=== PATIENT | female | born 1985 | race Caucasian/White ===

== ENCOUNTER 2018-02-04 19:23 | Inpatient (IN) | payer OTHER ==
[2018-02-04 20:14] VITALS: BMI 25.0
[2018-02-04] MEDS ORDERED: Lactated Ringer's 1,000 ML IV SCH ×2 (20:45)
[2018-02-04 21:49] LABS: BASO % 0.5 % (0.0-2.0); EOS # 0.2 K/uL (0.0-0.7); EOS % 1.7 % (0.0-4.0); HEMOGLOBIN 13.2 g/dL (12.0-16.0); LYMPH # 1.9 K/uL (1.0-4.3); LYMPH % 17.6 % (20.0-40.0); MEAN CORPUSCULAR HGB CONC 32.9 g/dL (33.0-37.0); MEAN PLATELET VOLUME 8.7 fl (7.2-11.7); MONO # 0.7 K/uL (0.0-0.8); MONO % 6.4 % (0.0-10.0); NEUT % 73.8 % (50.0-75.0); RBC 5.09 Mil/uL (3.80-5.20); RED CELL DISTRIBUTION WIDTH 13.2 % (11.5-14.5); WHITE BLOOD COUNT 10.8 K/uL (4.8-10.8)
--- NOTE | 2018-02-05 09:35 | OBADHP ---
Datetime: 02/04/2018 23:29 Admit Comment, IP Provider: 32-year-old 011 at 38 weeks gestational age transferred to labor a nd delivery due to oligohydramnios. Patient for induction of labor. Patient denies any contractions, vaginal bleeding, leakage of fluids. Patient reports good movement. records reviewed. Line past medical history hypothyroidism Past surgical history denies Medications vitamins, Synthroid No known drug allergies Obstetrical history full-term 1 Social history denies tobacco, drugs, alcohol Assessment: 011 at 38 weeks gestational age with oligohydramnios for induction of labor. Both maternal w ell-being and well-being reassuring at this time. Plan: Discussed plan with patient and all patient questions answered. Cervidil placed vaginally. Pelvic Type - PN: Adequate Extremities - PN: Normal Abdomen - PN: Normal Back - PN: Normal Breast - PN: Normal Lungs - PN: Normal Heart - PN: Normal Thyroid - PN: Normal Neurologic - PN: Normal HEENT - PN: Normal General - PN: Normal FHR - Baseline A Provider: 140s-150s Membranes, Provider: Intact Contraction Comments Provider: occasional IP Hx Assessment: The History has been Reviewed and is Current Vital Signs Provider: Reviewed; Within Normal Limits NICHD Variability Prov Fetus A: Moderate 6-25bpm NICHD Accel Fetus A IP Provider: [id number] FHR Category Provider Fetus A: Category I NICHD Decel Fetus A IP Provider: None Dilatation, Provider: 1 Effacement, Provider: 50 Station, Provider: -4 Genitourinary Exam: Normal DTRs - PN: Normal IP Adm Impression: Term, intrauterine ; No Active Labor; Intact Membranes IP Admit Plan: Admit to unit; Initiate labor induction protocol
--- NOTE | 2018-02-05 10:15 | OBPN ---
Datetime: 02/05/2018 10:00 IP Progress Impression: Reassuring heart rate IP Informed Consent Obtain: Vaginal Delivery; Risks, Benefits and Alternatives Discussed IP Progress Plan: Induction; Cervical Ripening; Anticipate Vaginal Delivery Pool Provider: Negative Membranes, Provider: Intact Contraction Comments Provider: occ Presentation-Admit: Vertex IP Progress Note Comment: OB Attending note/covering for hospitalist She was admitted for oligohydramnios/started on Cervidil (which was just removed). She feels occ CTX A; IUP at 38w Oligohydramnios/hypothyroidism PLAN discusion about continued IOL...Cytotec discussed. Her questions answered and she agreed FHR Category Provider Fetus A: Category I Dilatation, Provider: 1 Effacement, Provider: long Station, Provider: high NICHD Decel Fetus A IP Provider: None Datetime: 02/04/2018 23:29 FHR - Baseline A Provider: 140s-150s Vital Signs Provider: Reviewed; Within Normal Limits NICHD Accel Fetus A IP Provider: [id number] NICHD Variability Prov Fetus A: Moderate 6-25bpm
[2018-02-05] MEDS ORDERED: Lactated Ringer's 2,000 ML IV SCH (15:00)
[2018-02-05] MEDS ORDERED: Lactated Ringer's 1,000 ML IV SCH (15:00)
[2018-02-05] MEDS ORDERED: Lidocaine 2% PF (10 ml) Amp ONE (15:21)
[2018-02-05] MEDS ORDERED: Oxytocin 30 units/LR 500ML 30 UNITS/500 ML BAG IV ONE (15:22)
[2018-02-05] MEDS ORDERED: Fentanyl/Bupivacaine HCl 0 ML EPI ONE (16:01)
[2018-02-05] MEDS ORDERED: Bupivacaine HCl 0.25% PF (10 ml) Inj ONE (16:02)
[2018-02-05] MEDS ORDERED: Oxycodone/Acetaminophen 5/325 mg Tab PO PRN (16:40)
[2018-02-05] MEDS ORDERED: Oxytocin 30 units/LR 500ML 30 UNITS/500 ML BAG IV SCH (17:00)
[2018-02-06] MEDS: Levothyroxine 75 MCG TAB PO SCH (06:41)
--- NOTE | 2018-02-06 07:16 | OBPPN ---
Datetime: 02/06/2018 07:12 PP Pain Prov: Within normal limits PP Nausea Prov: Denies PP Flatus Prov: Yes PP Breasts Prov: Normal PP Heart Prov: Normal PP Lungs Prov: Normal PP Abdomen/Uterus Prov: Normal PP Lochia Prov: Normal PP Vulva/Perineum Prov: Normal PP CVA Tenderness Prov: Normal PP Extremities Prov: Normal PP Progress Prov: Normal PP Comments Phys Exam Prov: Abd: Soft, NT, BS - present UT - Firm, NT PP Impression Prov: Normal progression PP Plan Prov: Continue present management PP Progress Note Prov: S/P , PPD #1 Clinically Stable.
[2018-02-06 08:14] LABS: HEMOGLOBIN 12.4 g/dL (12.0-16.0); MEAN CELL VOLUME 78.4 fl (81.0-99.0); MEAN CORPUSCULAR HGB CONC 33.2 g/dL (33.0-37.0); RBC 4.76 Mil/uL (3.80-5.20)
[2018-02-06] MEDS: Prenatal Multivit/Folic Acid/Iron Tab PO SCH (09:05)
[2018-02-07] MEDS: Levothyroxine 75 MCG TAB PO SCH (06:28)
[2018-02-07] MEDS: Prenatal Multivit/Folic Acid/Iron Tab PO SCH (09:03)
[2018-02-07] MEDS ORDERED: Varicella Virus Vaccine Inj SC ONE (09:10)
[2018-02-07 22:02] VITALS: BP 118/74; PULSE 94; RESP 20; TEMP 98.1; O2SAT 100
--- NOTE | 2018-02-08 12:14 | OBPPN ---
Datetime: 02/07/2018 08:58 PP Pain Prov: Within normal limits PP Nausea Prov: Denies PP Flatus Prov: Yes PP Breasts Prov: Normal PP Heart Prov: Normal PP Lungs Prov: Normal PP Abdomen/Uterus Prov: Normal PP Lochia Prov: Normal PP Vulva/Perineum Prov: Normal PP CVA Tenderness Prov: Normal PP Extremities Prov: Normal PP Progress Prov: Normal PP Comments Phys Exam Prov: Abd: Soft, NT, BS - present UT - Firm. PP Impression Prov: Normal progression PP Plan Prov: Discharge PP Progress Note Prov: S/P uncomplicated Spontaneous vaginal delivery, PPD #2, Clinically Stable. Plan: D/C Home F/U with Dr Rodas in 4-6 weeks Pelvic rest. Pt requests varicella vaccine. Varicella vacine unavailable in the Hospital as per the nurse. Pt to arrange for it to be given at her private doctors office.
== END 2018-02-07 17:30 | disposition home or self-care (01) | DRG 775 ==
LOC: H.EROB2 19:23 → H.L&D 20:37 → H.OB/GYN 02-05 18:36
PROVIDERS: ADMIT Obstetrics & Gynecology; ATTEND Obstetrics & Gynecology
PROC: 4A1HXCZ Monitoring of Products of Conception, Cardiac Rate, External Approach (ICD-10-PCS; 2018-02-04)
PROC: 0HQ9XZZ Repair Perineum Skin, External Approach (ICD-10-PCS; principal; 2018-02-05)
PROC: 10E0XZZ Delivery of Products of Conception, External Approach (ICD-10-PCS; 2018-02-05)
DX: O41.03X0 Oligohydramnios, third trimester, not applicable or unspecified (principal); Z37.0 Single live birth; Z3A.38 38 weeks gestation of pregnancy; O70.0 First degree perineal laceration during delivery